=== PATIENT | male | born 1990 | race Caucasian/White ===

== ENCOUNTER 2022-03-08 15:18 | Emergency (ER) | payer MEDICAID, OTHER ==
[~2022-03-08] VITALS: Ht 167.6 cm; Wt 86.4 kg
[2022-03-08 16:15] LABS: CLARITY,URINE CLOUDY (Clear); COLOR,URINE YELLOW (Yellow); GLUCOSE, URINE 100 mg/dl (Neg); KETONES,URINE TRACE mg/dl (Neg); LEUKOCYTE ESTERASE ,URINE NEGATIVE (Neg); NITRITES, URINE NEGATIVE (Neg); OCCULT BLOOD,URINE NEGATIVE (Neg); PROTEIN,URINE NEGATIVE (Neg); UROBILINOGEN,URINE >=8.0 E.U/dL (0.2-1.0)
[2022-03-08 16:17] LABS: BASOPHILS # (AUTO) 0.1 X10'3 (0-0.2); BASOPHILS % (AUTO) 1.1 % (0-1); EOSINOPHILS # (AUTO) 0.3 X10'3 (0-0.9); EOSINOPHILS % (AUTO) 3.1 % (0-6); HEMATOCRIT 45.8 % (42.0-52.0); HEMOGLOBIN 15.8 g/dl (14.0-17.9); LYMPHOCYTES # (AUTO) 1.7 X10'3 (1.1-4.8); LYMPHOCYTES % (AUTO) 17.2 % (21-51); MEAN CORPUSCULAR HEMOGLOBIN 32.9 PG (27.0-31.0); MEAN CORPUSCULAR HGB CONC 34.6 g/dL (33.0-36.5); MEAN CORPUSCULAR VOLUME 95.1 FL (78-98); MEAN PLATELET VOLUME 7.6 FL (7.4-10.4); MONOCYTES # (AUTO) 1.4 X10'3 (0-0.9); MONOCYTES % (AUTO) 14.4 % (2-12); NEUTROPHILS # (AUTO) 6.2 X10'3 (1.8-7.7); NEUTROPHILS % (AUTO) 64.2 % (42-75); PLATELET COUNT 218 X10'3 (140-440); RED BLOOD COUNT 4.81 X10'6 (4.70-6.10); RED CELL DISTRIBUTION WIDTH 15.1 % (11.5-14.5); WHITE BLOOD COUNT 9.7 X10'3 (4.5-11.0)
[2022-03-08 16:19] LABS: UA COLLECTION TYPE CLN CATCH MIDSTREAM
[2022-03-08 16:26] LABS: AMMONIUM BIURATE CRYSTALS 4+ /HPF (NEGATIVE)
[2022-03-08 16:27] LABS: BACTERIA,URINE FEW /HPF (Neg); RBC,URINE 0-2 /HPF (0-2); SQUAMOUS EPITHELIAL CELL,UR FEW /LPF (FEW); WBC,URINE 0-4 /HPF (0-4)
[2022-03-08 16:28] LABS: URINE AMPHETAMINE SCREEN POSITIVE (Neg); URINE BARBITUATE SCREEN POSITIVE (Neg); URINE BENZODIAZEPINES SCREEN NEGATIVE (Neg); URINE CANNABINOID SCREEN POSITIVE (Neg); URINE COCAINE SCREEN NEGATIVE (Neg); URINE METHADONE SCREEN NEGATIVE (Neg); URINE OPIATE SCREEN NEGATIVE (Neg); URINE PHENCYCLIDINE SCREEN NEGATIVE (Neg)
[2022-03-08 16:53] LABS: ALANINE AMINOTRANSFERASE 65 U/L (12-78); ALBUMIN 3.2 G/DL (3.4-5.0); ALKALINE PHOSPHATASE 105 IU/L (46-116); ANION GAP 7 (8-16); ASPARTATE AMINO TRANSFERASE 58 U/L (10-37); BILIRUBIN,TOTAL 1.2 MG/DL (0.1-1.0); BLOOD UREA NITROGEN 15 MG/DL (7-18); BUN/CREATININE RATIO 13.3 (5.4-32.0); CALCIUM 8.4 MG/DL (8.5-10.1); CHLORIDE 99 MMOL/L (99-107); CREATININE 1.13 MG/DL (0.60-1.10); ETHANOL < 0.010 GM/DL (0.0-0.010); GLUCOSE 118 MG/DL (70-104); POTASSIUM 3.3 MMOL/L (3.5-5.1); SODIUM 131 MMOL/L (135-145); TOTAL CARBON DIOXIDE 24.8 MMOL/L (24-32); TOTAL PROTEIN 6.3 G/DL (6.4-8.2); eGFR 75 ML/MIN
--- NOTE | 2022-03-08 16:55 | NUR ---
Pt requested and was given some crackers, apple sauce, water, to tide him over until dinner. Pt is on regular diet. Assessment completed.
--- NOTE | 2022-03-08 17:41 | NUR ---
assumed care of pt, pt resting comfortably. No complaints at this time, continue to monitor.
--- NOTE | 2022-03-08 18:27 | NUR ---
PACKET SENT EARLIER IN THE DAY.
[2022-03-08] MEDS ORDERED: NO HOME MEDS (19:47)
--- NOTE | 2022-03-08 20:15 | NUR ---
Patient brought to bed 21 from main ER. Limited report from [facility]. Patient is on a 5150 for DTS. S/I, patient denies a plan. Patient claims to have a psychotic break while [place] two days ago. Patient states he saw cartoons. He denies audible or visual hallucinations. Patient was seen at [facility] and transfered to [facility] ED by EMS. The patient is cooperative. No home medications. Patient states he has had Trazadone in the past as well as Seroquel. The ER doctor was advised and both medications were scheduled and given. Patient is resting quietly at this time.
[2022-03-08] MEDS ORDERED: LORazepam 1 MG tablet PO ONE (21:00)
[2022-03-08] MEDS ORDERED: QUEtiapine 25mg tablet PO SCH (21:00)
--- NOTE | 2022-03-08 22:45 | NUR ---
Patient is sleeping quietly, no distress, mid fowlers position in view from nurses station.
--- NOTE | 2022-03-09 00:18 | NUR ---
Report given to Mayra at [facility]. Mayra will be giving information to their provider for consideration of acceptance. They need a confirmatin of medical clearance. This will be faxed.
--- NOTE | 2022-03-09 01:31 | NUR ---
Patient is sleeping on his right side. No distress.
--- NOTE | 2022-03-09 03:14 | NUR ---
Patient is sleeping quietly in a low fowlers position, knees flexed.
--- NOTE | 2022-03-09 04:51 | NUR ---
Patient sleeps quietly, no distress.
[2022-03-09 06:26] VITALS: BP 112/75
--- NOTE | 2022-03-09 07:00 | NUR ---
Received Pt in bed sleeping w/o distress at this time.
--- NOTE | 2022-03-09 09:05 | NUR ---
Pt woke and used bathroom. Pt cooperative and ate breakfast. Pt did not have any AM meds. He was able to laugh at a joke and asked for something extra to drink appropriately. In bed resting.
--- NOTE | 2022-03-09 11:35 | NUR ---
[facility] security patrol driver picked up Pt to drive them to [facility] where they were accepted. Pt's belongings returned to security patrol driver with original 5150. Pt left at 1125.
== END 2022-03-09 12:26 ==
LOC: ER 15:19
DX: R45.851 Suicidal ideations (principal); Z20.822 Contact with and (suspected) exposure to COVID-19; R44.1 Visual hallucinations; R44.0 Auditory hallucinations; R45.850 Homicidal ideations; F12.90 Cannabis use, unspecified, uncomplicated; F15.90 Other stimulant use, unspecified, uncomplicated; Z72.89 Other problems related to lifestyle; Z60.2 Problems related to living alone; Z59.00 Homelessness unspecified
CPT/HCPCS: 36415; 80053; 80305; 80320; 81001; 84443; 85025; 87811; 99285

== ENCOUNTER 2022-04-04 10:22 | Emergency (ER) | payer MEDICAID, OTHER ==
[~2022-04-04] VITALS: Ht 167.6 cm; Wt 100.0 kg
[~2022-04-04 10:22] MED LIST: NO HOME MEDS
[2022-04-04 10:39] VITALS: BP 120/83
[2022-04-04] MEDS ORDERED: pantoprazole 40mg Tablet.DR PO ONE (11:35)
[2022-04-04] MEDS ORDERED: famotidine 20mg tablet PO ONE (11:35)
[2022-04-04] MEDS ORDERED: LIDOcaine Viscous 15ml cup MM ONE (11:35)
[2022-04-04] MEDS ORDERED: mag hydrox/Alum hydrox/simeth 30ml oral suspension PO ONE (11:35)
[2022-04-04] MEDS ORDERED: ondansetron 4mg rapidly disintigrating tab PO ONE (11:35)
[2022-04-04] MEDS ORDERED: PANT-47 PO (11:50)
[2022-04-04] MEDS ORDERED: CHLO25CA10 PO (11:50)
== END 2022-04-04 12:11 | disposition home or self-care (01) ==
LOC: ER 10:22
DX: F10.10 Alcohol abuse, uncomplicated (principal); R56.9 Unspecified convulsions; R00.0 Tachycardia, unspecified; F12.90 Cannabis use, unspecified, uncomplicated; F15.90 Other stimulant use, unspecified, uncomplicated; Z59.00 Homelessness unspecified; Z60.2 Problems related to living alone; Z79.899 Other long term (current) drug therapy; Y90.9 Presence of alcohol in blood, level not specified
CPT/HCPCS: 93005; 99284